=== PATIENT | female | born 1950 | race Hispanic/Latino ===

== ENCOUNTER 2021-04-02 12:13 | Emergency (ER) | payer MEDICARE ==
[~2021-04-02] VITALS: Ht 157.5 cm; Wt 49.9 kg
[2021-04-02 13:03] LABS: HEMATOCRIT 35.2 % (36-48); MEAN CORPUSCULAR HEMOGLOBIN 31.5 pg (27.0-33.0); MEAN CORPUSCULAR HGB CONC 35.2 g/dL (32.0-36.0); MEAN CORPUSCULAR VOLUME 89.3 fL (79-99); PLATELET COUNT (AUTO) 225 K/uL (130-400); RED BLOOD CELL COUNT(AUTO) 3.94 MIL/uL (4.00-5.50); RED CELL DISTRIBUTION WIDTH 11.9 % (11.0-15.5)
[2021-04-02 13:16] LABS: CREATININE 0.8 mg/dL (0.5-1.5); POTASSIUM 3.6 mmol/L (3.5-5.1)
[2021-04-02 13:20] LABS: ALBUMIN 3.9 g/dL (3.5-5.0); BILIRUBIN,TOTAL 0.7 mg/dL (0.2-1.0); TOTAL PROTEIN, SERUM 7.6 g/dL (6.0-8.3)
[2021-04-02 14:02] LABS: EOSINOPHILS % (MANUAL) 1 % (1-6); LYMPHOCYTES % (MANUAL) 18 % (22-44); MAN.DIFF COMMENT-IMPRESSION MANUAL DIFFERENTIAL; MONOCYTES % (MANUAL) 3 % (2-9); PLATELET MORPHOLOGY COMMENT ADEQUATE; SEGMENTED NEUTROPHILS % 78 % (40-70)
[2021-04-02 14:20] LABS: APPEARANCE,URINE Clear (CLEAR); BILIRUBIN,URINE Negative (NEGATIVE); COLOR,URINE Yellow (YELLOW); GLUCOSE, URINE (UA) Negative (NEGATIVE); KETONES,URINE Negative (NEGATIVE); LEUKOCYTE ESTERASE ,URINE Trace (NEGATIVE); NITRATE,URINE Negative (NEGATIVE); OCCULT BLOOD,URINE Negative (NEGATIVE); PROTEIN,URINE Negative (NEGATIVE)
[2021-04-02 14:43] LABS: BACTERIA,URINE Rare /HPF (None Seen); RBC,URINE 0-1 /HPF (0-1); SQUAMOUS EPITHELIAL CELL,UR None Seen /HPF (0-2)
[2021-04-02] MEDS ORDERED: CEPH500B PO (15:30)
[2021-04-02] MEDS ORDERED: FAMO20TA8 PO (15:30)
[2021-04-02 16:03] VITALS: BP 131/56
== END 2021-04-02 16:02 | disposition home or self-care (01) ==
LOC: EDH 12:13
DX: N39.0 Urinary tract infection, site not specified (principal); K21.9 Gastro-esophageal reflux disease without esophagitis; I10 Essential (primary) hypertension
CPT/HCPCS: 36415; 80053; 81001; 83690; 84484; 85025; 93005

== ENCOUNTER 2021-07-19 08:24 | Emergency (ER) | payer MEDICARE ==
[~2021-07-19] VITALS: Ht 154.9 cm; Wt 46.7 kg
[~2021-07-19 08:24] MED LIST: CEPH500B PO; FAMO20TA8 PO
[2021-07-19] MEDS ORDERED: HYD25 PO (10:21)
[2021-07-19] MEDS ORDERED: METH4TAB3 PO (10:21)
[2021-07-19] MEDS ORDERED: HYDROXYZINE 10 MG TABLET PO SCH (10:30)
[2021-07-19] MEDS ORDERED: LORATADINE 10 MG TABLET PO SCH (10:30)
[2021-07-19] MEDS ORDERED: SOLU-MEDROL 125MG VIAL IM ONE (10:30)
[2021-07-19 10:54] VITALS: BP 118/52
== END 2021-07-19 11:12 | disposition home or self-care (01) ==
LOC: EDH 08:24
DX: T78.40XA Allergy, unspecified, initial encounter (principal); I10 Essential (primary) hypertension; Z79.899 Other long term (current) drug therapy; X58.XXXA Exposure to other specified factors, initial encounter
CPT/HCPCS: 96372; 99283; J2930